=== PATIENT | female | born 1935 | race Caucasian/White ===

== ENCOUNTER 2016-09-10 09:00 | Emergency (ER) | payer OTHER ==
--- NOTE | ~2016-09-10 | EKG ---
PATIENT: RICKY HODGE UNIT #: [id number] Ventricular Rate: 71 BPM Atrial Rate: 71 BPM P-R Interval: 170 ms QRS Duration: 78 ms Q-T Interval: 398 ms QTC Calculation(Bezet): 432 ms P [place]: 72 degrees Calculated R [place]: 108 degrees Calculated T [place]: 41 degrees Diagnosis Line: Normal sinus rhythm Diagnosis Line: Rightward axis Diagnosis Line: Borderline ECG Diagnosis Line: No previous ECGs available Diagnosis Line: Confirmed by WILLI SHIN MD ([id number]) on Diagnosis Line: 09/10/2016 10:46:32 PM INTERPRETING MD: SALLY
[~2016-09-10 09:00] MED LIST: CORGARD PO; HYZAAR PO
== END 2016-09-10 10:25 | disposition home or self-care (01) ==
LOC: CED 09:00
DX: M54.12 Radiculopathy, cervical region (principal); I10 Essential (primary) hypertension; K21.9 Gastro-esophageal reflux disease without esophagitis; I34.1 Nonrheumatic mitral (valve) prolapse; Z90.49 Acquired absence of other specified parts of digestive tract; Z90.710 Acquired absence of both cervix and uterus; Z79.899 Other long term (current) drug therapy
CPT/HCPCS: 93005; 99282